=== PATIENT | female | born 1940 | race Caucasian/White ===

== ENCOUNTER 2020-03-31 07:26 | Outpatient (CLI) | payer OTHER, MEDICARE | END 2020-03-31 23:59 | disposition home or self-care (01) | LOC: ROC 07:26 | PROVIDERS: ATTEND Radiology Radiation Oncology | DX: D32.0 Benign neoplasm of cerebral meninges (principal) | CPT/HCPCS: 99214; G0463 ==

== ENCOUNTER → 2020-04-08 | Outpatient (CLI) | payer OTHER, MEDICARE ==
[~2020-04-08] MED LIST: GADOTERATE 10 MMOL/20 ML SYR ONE
== END | disposition home or self-care (01) ==
LOC: CFH 13:50
PROVIDERS: ATTEND Radiology Radiation Oncology
DX: D32.0 Benign neoplasm of cerebral meninges (principal); J34.89 Other specified disorders of nose and nasal sinuses
CPT/HCPCS: 70553; A9575

== ENCOUNTER → 2020-11-01 | Outpatient (CLI) | payer OTHER, MEDICARE | END | disposition home or self-care (01) | LOC: ROC 10:01 | PROVIDERS: ATTEND Radiology Radiation Oncology | DX: Z08 Encounter for follow-up examination after completed treatment for malignant neoplasm (principal); Z85.841 Personal history of malignant neoplasm of brain | CPT/HCPCS: 99441 ==